=== PATIENT | male | born 1950 | race Caucasian/White ===

== ENCOUNTER 2018-03-19 09:19 | Day surgery (SDC) | payer MEDICARE ==
[2018-03-16 13:40] VITALS: BP 141/84
[2018-03-16 14:32] LABS: ALANINE AMINOTRANSFERASE 25 U/L (12-78); ALBUMIN 3.6 g/dL (3.4-5.0); ANION GAP 5 mmol/L (5-15); CALCIUM 8.7 mg/dL (8.5-10.1); CHLORIDE 108 mmol/L (98-107); CREATININE 1.44 mg/dL (0.7-1.3)
[2018-03-16 14:33] LABS: MICROSCOPIC NOT IND
[2018-03-16 14:34] LABS: ALKALINE PHOSPHATASE 88 U/L (45-117); BILIRUBIN,TOTAL 0.3 mg/dL (0.2-1.0); TOTAL PROTEIN 7.2 g/dL (6.4-8.2)
[~2018-03-19] VITALS: Ht 180.3 cm; Wt 106.1 kg
[~2018-03-19 09:19] MED LIST: ALPR0.5T6 PO; CYCL-259 PO; GABA300C10 PO; HYDR-3307 PO; HYDR25TA6 PO; LEVO150T5 PO; LISI40TA PO; OXYC-432 PO; POTA10TA12 PO; TAMS-11 PO
[2018-03-19] MEDS ORDERED: LACTATED RINGERS 1,000 ML IV SCH ×2 (09:40→13:06)
[2018-03-19] MEDS ORDERED: AMLO5TAB7 PO (09:44)
[2018-03-19 09:48] VITALS: BP 141/84
[2018-03-19] MEDS ORDERED: LIDOCAINE-MPF 1%, 2ML INFIL ONE (10:00)
[2018-03-19] MEDS ORDERED: FENTANYL PF 250 MCG/5ML ONE (10:30)
[2018-03-19] MEDS ORDERED: LIDOCAINE 4%, 4 ML SYR/CANN TP ONE (11:34)
[2018-03-19] MEDS ORDERED: DEXAMETHASONE 4 MG/ML, 1ML ONE (11:45)
[2018-03-19] MEDS ORDERED: ONDANSETRON 2MG/ML, 2ML ONE (11:45)
[2018-03-19] MEDS ORDERED: CIPROFLOXACIN/PMX 400MG/200ML 200 ML ONE (11:45)
[2018-03-19] MEDS ORDERED: ROCURONIUM 10MG/ML,5ML ONE (11:45)
[2018-03-19] MEDS ORDERED: SUCCINYLCHOLINE 20 MG/ML, 10ML ONE (11:45)
[2018-03-19] MEDS ORDERED: GLYCOPYRROLATE 0.2MG/1ML, 5ML ONE (11:45)
[2018-03-19] MEDS ORDERED: CEFAZOLIN 1,000 MG ONE (11:45)
[2018-03-19] MEDS ORDERED: CIPROFLOXACIN/PMX 400MG/200ML 0 ML ONE (11:45)
[2018-03-19] MEDS ORDERED: NEOSTIGMINE 1 MG/ML, 10ML ONE (11:45)
[2018-03-19] MEDS ORDERED: PROPOFOL 10 MG/ML, 20ML ONE (11:45)
[2018-03-19] MEDS ORDERED: MORPHINE SULFATE 4 MG/ML, 1ML IVPush PRN (12:00)
[2018-03-19] MEDS ORDERED: LABETALOL 5MG/ML, 20ML IV PRN (12:00)
[2018-03-19] MEDS ORDERED: ONDANSETRON ODT 8 MG PO PRN (12:00)
[2018-03-19] MEDS ORDERED: ACETAMINOPHEN 325 MG TABLET PO PRN (12:00)
[2018-03-19] MEDS ORDERED: hydrALAzine 20 MG/ML, 1ML IV PRN (12:00)
[2018-03-19] MEDS ORDERED: PROMETHAZINE 25 MG/ML, 1ML IV PRN (12:00)
[2018-03-19] MEDS ORDERED: OXYcodone 5 MG/5 ML ORAL.SOL UDC PO PRN (12:00)
[2018-03-19] MEDS ORDERED: ONDANSETRON 2MG/ML, 2ML IV PRN (12:00)
[2018-03-19] MEDS ORDERED: OXYcodone 5 MG/5 ML ORAL.SOL UDC ONE (13:18)
[2018-03-19] MEDS ORDERED: FENTANYL PF 100 MCG/2ML ONE (13:18)
[2018-03-19] MEDS: FENTANYL PF 100 MCG/2ML IV PRN ×2 (13:25→13:40)
[2018-03-19] MEDS ORDERED: HYDROcodone/APAP 5/325 TABLET PO PRN (13:30)
[2018-03-19] MEDS ORDERED: hydrALAzine 20 MG/ML, 1ML ONE (13:50)
== END 2018-03-19 16:45 | disposition home or self-care (01) ==
LOC: OUT 09:19
PROVIDERS: ATTEND Urology
DX: N40.0 Benign prostatic hyperplasia without lower urinary tract symptoms (principal); F32.9 Major depressive disorder, single episode, unspecified; E11.9 Type 2 diabetes mellitus without complications; I10 Essential (primary) hypertension; E03.9 Hypothyroidism, unspecified; E78.5 Hyperlipidemia, unspecified; Z87.891 Personal history of nicotine dependence; Z79.82 Long term (current) use of aspirin; Z79.899 Other long term (current) drug therapy; Z98.890 Other specified postprocedural states
CPT/HCPCS: 36415; 52648; 80053; 81003; 87086; 93005; J0330; J0360; J0690; J0744; J1100; J2405; J2704; J2710; J3010; J3490; J7120